=== PATIENT | female | born 1975 | race African-American/Black ===

== ENCOUNTER 2024-04-24 12:40 | Outpatient (CLI) | payer BC, SELFPAY | END 2024-04-24 12:41 | disposition home or self-care (01) | LOC: ANHSURGERY 12:47 | PROVIDERS: PCP Family Medicine; Visit Provider Obstetrics & Gynecology | DX: Z01.818 Encounter for other preprocedural examination (principal); N92.0 Excessive and frequent menstruation with regular cycle | CPT/HCPCS: 36415; 86850; 86900; 86901 ==

== ENCOUNTER 2024-04-29 00:14 | Day surgery (SDC) | payer BC, SELFPAY ==
[2024-04-22 14:45] VITALS: BMI 33.2
--- NOTE | 2024-04-22 14:53 | PC.NURSE ---
Report to the Outpatient Waiting Room, entrance under the green pavilion located off [facility], at time _0600_ on date _[id number]_. Planned Procedure Time: _0730_. Time changes happen often and if your time is changed the preop area will call you the afternoon before. - You and your visitor will be asked to self-screen and do not enter if you have any COVID symptoms. - A mask is optional within the hospital at this time. Patients may have clear liquids (water, carbonated beverages, clear teas, apple juice) until 3 hours prior to surgery with a maximum of 20 ounces. - No food from midnight until time of surgery Take the following medications with a SIP of water the morning of surgery: None DO NOT STOP ANY OF YOUR OTHER PRESCRIPTION MEDICATIONS PRIOR TO SURGERY ?EXCEPT THE FOLLOWING Medications to discontinue per physician None Date to take last dose Please no make-up, nail irish, hairspray, perfume, deodorant, or body powder the day of surgery. No jewelry (including any body piercings) or valuables the day of surgery, leave them at home. Please take a shower or bath the night before, or the morning of, surgery with an antibacterial soap. Wear comfortable, loose fitting clothing. - Jewelry must be removed prior to entering the operating room. Rings and piercings that are not removed may be cut off. - The hospital will not accept responsibility for valuables. - Please leave all valuables, including medications, at home the day of surgery. If you are going home after surgery, a licensed refrigerated company driver must drive you home. - NO public transportation without another adult if you receive anesthesia. - We recommend that an adult stay with you for 24 hours following discharge. - We also recommend that you do not drive, make important decision, drink alcoholic beverages, or take any drugs that were not prescribed by your health care provider for at least 24 hours after your discharge time. Follow any additional instructions given to you from your surgeon. If you or anyone in your household have experienced Covid symptoms in the past week, please notify your surgeon or the nurse liaison at the phone number below for possible testing. Telephone instructions given to __Joan___and asked if any additional questions and then verbalized understanding. Patient advised to call surgeon office or pre surgery nurse liaison [phone] if any additional questions.
[2024-04-29] VITALS (9 sets, daily range): BP systolic 95–137; BP diastolic 54–89; PULSE 65–90; RESP 14–20; TEMP 36.2–36.7; O2SAT 96–100
[2024-04-29] MEDS: LACTATED RINGERS 1,000 ML 30 ML IV CONT ×2 (06:45→10:50)
[2024-04-29] MEDS: KETOROLAC 15 MG/ML VIAL (*BKC) IV PUSH (06:45)
[2024-04-29] MEDS: ACETAMINOPHEN 500 MG TABLET 1000 MG PO (06:45)
--- NOTE | 2024-04-29 06:55 | P.PNAN_ITS ---
Anes - Initial Pre Proc Eval Procedure: Operation Date: 04/29/24 07:30 Proposed Procedures p Robotic Laparoscopic Assisted Total Vaginal Hysterectomy with Bilateral Salpingo-oophorectomy - Louis Tineo MD Date/Time: 04/29/24 06:55 Surgeon: Louis Tineo MD Pre Op Diagnosis: Nat II, Menorrhagia, Fibroid Uterus Patient Data Age: 48 Gender: F Height: 1.8 m Weight: 108 kg Allergies Allergy/AdvReac Type Severity Reaction Status Date / Time No Known Allergies Allergy Verified 04/22/24 14:44 Home Medications Medication Instructions Recorded Confirmed Type phentermine 37.5 mg tablet 37.5 mg PO DAILY 04/22/24 04/22/24 History metronidazole 500 mg tablet 500 mg PO BID 7 days #14 tabs 04/27/24 Rx Patient hx anesthesia problems: none Family hx anesthesia problems: none Results Review: All pre-operative results and documents have been reviewed as part of the pre- operative evaluation. [facility] Past Medical History Medical History LGSIL on Pap smear of cervix No active medical problems Papanicolaou smear of cervix with positive 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 Surgical History Surgical History S/P right oophorectomy S/P splenectomy Family History Family History Other Alcoholism Asthma Diabetes mellitus Heart disease History of cancer Hypertension Social History Social History Smoking status: Never smoker Alcohol intake: current Drinks per week: 5 Substance use: never Substance use type: does not use Do You Feel Safe in your Home?: Yes Lack of Transportation: No Lack of Food: Never True Current Housing: I Have Housing Concerned About Future Housing: No Difficulty Paying Gas/Electric Bills: No Difficulty Paying for Meds: No Currently Unemployed: No Difficulty w/ Childcare or Family Care: No Living arrangements: with family Spiritual care concerns: No Anes - Eval Final PreProcedure Day of Procedure 04/29/24 06:55 Patient weight: obese Heart: regular rate and rhythm Lungs: clear to auscultation Airway: Mallampati scale class II Neurological: alert and oriented Last oral intake: >/= 8 hours ASA classification: II Emergent: no Anesthetic plan: proceed Anesthesia type and monitoring: general ETT and standard monitoring Results Review: All pre-operative results and documents have been reviewed as part of the pre- operative evaluation. Informed Consent: The patient's anesthetic plan and its attendant risks and benefits were discussed with the patient/family/POA. Questions were solicited and answers provided to the satisfaction of the patient/family/POA.
--- NOTE | 2024-04-29 07:11 | WPDHPUPDATE1 ---
History and Physical Update Update Date/Time: 04/29/24 07:11 History and Physical has been reviewed, including an updated exam of the patient. There are NO changes in the patient's condition. Risks, benefits, and alternatives have been discussed and questions answered. Patient agrees to proceed with procedure.
[2024-04-29] MEDS: ceFAZolin 2 GM/D5W 50 ML 2 GM/50 ML BAG IVPB (07:30)
[2024-04-29] MEDS: SCOPOLAMINE 1 MG PATCH 1 PATCH TRANSDERM (07:36)
[2024-04-29] MEDS: BUPivacaine HCL 0.5% 10 ML AMP 20 ML INFILTRATE (08:15)
[2024-04-29 08:23] LABS: BEDSIDEPREGUCG Negative
--- NOTE | 2024-04-29 10:32 | PM.OP ---
Procedure Note - Brief Procedure Note - Brief Date of procedure: 04/29/24 Nat II, Menorrhagia, Fibroid Uterus Post-op diagnosis: Other (1. Menorrhagia 2. CIN2 3. Extensive pelvic adhesions) Procedure performed: 1. Laparoscopic robotic assisted vaginal hysterectomy with bilateral salpingectomy. 2. Extensive lysis of adhesions 3. Cystoscopy Surgeon: Louis Tineo MD Anesthesia: GETA Findings: Uterus enlarged, adhesions of intestines to mid abdomen, absent right ovary, left ovary densely adhesed to uterus and colon, adhesions of left fallopian tube to pelvic side wall. Normal cystoscopy with jetting from both ureteral orifi. Estimated blood loss (mL): 50 IV fluids (mL): 1,000 Urine output (mL): 150 Drains: No Packing: No Pathology: Yes (Uterus with cervix and right and left fallopian tube, remaining right fallopian tube) Complications: No immediate complications Condition: Stable Disposition: PACU
[2024-04-29] MEDS: fentaNYL CITRATE INJ (*CRX) 100 MCG/2 ML VIAL 25 MCG IV PUSH ×4 (11:25→11:48)
[2024-04-29] MEDS: SIMETHICONE 80 MG TAB.CHEW PO ×2 (12:18→16:39)
[2024-04-29] MEDS: DEXTROSE 5%/0.45% SOD CHL 1,000 ML 125 ML IV CONT (12:21)
[2024-04-29] MEDS: IBUPROFEN 600 MG TABLET PO (12:21)
[2024-04-29] MEDS: HYDROcodone/acetaminophen (*CRX) 10-325 MG TABLET 1 TAB PO ×3 (12:21→18:45)
[2024-04-29] MEDS: ONDANSETRON INJ 4 MG/2 ML VIAL IV PUSH (15:24)
[2024-04-29] MEDS: MORPHINE SULFATE (*CRX) 4 MG/ML INJ IV PUSH ×2 (16:39→20:40)
[2024-04-29] MEDS: KETOROLAC 30 MG/ML VIAL (*BKC) IV PUSH (18:45)
--- NOTE | 2024-04-29 23:55 | W.PM.PROC2 ---
Procedure Note - Detailed Date of Procedure 04/30/24 Pre-op Diagnosis Nat II, Menorrhagia, Fibroid Uterus Post-op Diagnosis Other (1. CIN2 2. Menorrhagia 3. Extensive lysis of adhesions) Procedure Performed Robotic assisted laparoscopic hysterectomy with bilateral salpingectomy 2. Extensive lysis of adhesions 3. Cystoscopy Surgeon Louis Tineo MD Lead Rider Laith Alcocer Anesthesia General and Local Indications CIN2 and menorrhagia. Findings Uterus approximately 10 week size, extensive adhesions of uterus to pelvic sidewall and left ovary adhesed to posterior uterus and colon. Adhesions of intestines right of midline in mid abdomen. Normal cystoscopy. Description of Procedure After informed consent was obtained she was taken to the operating room and general endotracheal anesthesia was administered. She was placed in low lithotomy position. An exam under anesthesia was performed. Uterus mildly enlarged no adnexal masses palpated. She was and prepped and draped in sterile fashion. Castro catheter placed in bladder. Attention was turned to the vagina speculum was inserted. Single-tooth tenaculum placed on anterior lip of the cervix the uterus sounded to 9cm. The cervix was dilated to a 8 Issa dilator. A size 8 uterine manipulator was inserted and secured. A size 3.0 colp cup was secured in the vagina. Then attention was turned to the abdomen with new sterile gloves. .5% marcaine injected subcutaneously. An incision was made horizontal 2 cm above the umbilicus. The subcutaneous tissue was dissected with S retractors. Anterior and posterior fascia grasped with Melida clamp and incised. Peritoneum entered. No adhesions palpated. The fascia sutures were secured with 0 vicryl. The robotic hysson port and camera inserted into abdomen and secured to fascial sutures. A Pneumoperitoneum of 15 mm per mercury was obtained. There was adhesions of intestines to right of midline to anterior abdominal wall. A small incision was made approximately 6 cm lateral to the port on the left side of the port. A size 8mm robotic port was inserted under laparoscopic visualization into the abdomen on the left side. Patient was placed in [place] position. The robotic arms were attached to ports. The right round ligament was ligated and the anterior leaf of broad ligament dissected. Adhesions were lysed from right and posterior uterus. The right side of the vesicouterine peritoneum was dissected from the lower uterine segment and upper cervix. The right fallopian tube was ligated. The ascending uterine vessels on the right were ligated. The uterine vessels were ligated. Attention was turned to the left adnexa which adhesions were lysed from the fallopian tube and pelvic sidewall and from pericolic fat. The left ovary was densely adhesed to posterior uterus and colon. The ovary was dissected off of posterior uterus. The right round ligament which was ligated and the anterior leaf of the broad ligament was dissected anteriorly. The rest of the vesicouterine peritoneum was dissected off of the uterus. Once the bladder was dissected below the colp cup then further lysis of adhesions of ovary was performed. Adhesions to distal colon dense and decision was made not to remove ovary. The ascending uterine vessels were ligated. The uterine arteries were ligated. The cardinal ligaments were ligated. This was done on both sides. An incision was made anterior colpotomy incision was made and this was carried around until the cervix was removed from the vagina. The uterus and cervix and right and left fallopian tubes were removed through the vagina. The vaginal cuff was closed in a running fashion with 0 V lock suture x 2. Hemostasis was noted. The pelvis was irrigated. Hemostasis noted. Hemostatic agent was applied in the pelvis. The patient was taken out of Trendelenburg position. The pneumoperitoneum was released and the ports were removed. The fascial sutures at the supraumbili
[2024-04-30] MEDS: HYDROcodone/acetaminophen (*CRX) 10-325 MG TABLET 1 TAB PO ×3 (01:50→14:34)
[2024-04-30 04:22] VITALS: BP 98/58; PULSE 71; RESP 18; TEMP 37.2; O2SAT 100
[2024-04-30] MEDS: MORPHINE SULFATE (*CRX) 4 MG/ML INJ IV PUSH (04:40)
[2024-04-30 08:45] VITALS: BP 105/73; PULSE 80; RESP 18; TEMP 36.9; O2SAT 98
[2024-04-30] MEDS: IBUPROFEN 600 MG TABLET PO ×2 (09:50→14:34)
--- NOTE | 2024-04-30 12:23 | PM.GYNPNOP ---
GROUP TESTER - A/P Assessment and plan (1) H/O: hysterectomy: Code(s): Z90.710 - Acquired absence of both cervix and uterus Status: Acute Assessment and Plan: POD1. Discussed her surgery findings. She is doing well. Encourage ambulation. Will discharge after regular diet. Discharge precautions discussed. Postoperative Procedures: Procedures Operation Date: 04/29/24 07:30 Actual Procedure Side Surgeon p Robotic Laparoscopic Assisted Total Vaginal Hysterectomy with Bilateral Salpingectomy, Cystoscopy Bilateral Louis Tineo MD Time Spent With Patient Time: Total time spent is greater than 50% in coordination of care (as documented) at patient's floor/unit and/or counseling patient: Time with patient: 15 - 25 minutes GROUP TESTER- PN:Subj Post-Op Subjective Date/time seen: 04/30/24829 Interval history: She has walked in room to restroom without problems. No nausea. Pain controlled. No leg pain. She has not had regular diet yet. She has tolerated liquids. Subjective: patient reports feeling better Exam Const: General: comfortable Resp: Effort & Inspection: normal respiratory effort GI: Other: incisions intact, nondistended, nontender Extrem: General: normal to inspection and no calf tenderness GROUP TESTER - PN: Obj Data Vital Signs Vital Signs: Vital Signs - 24 hr 04/29/24 15:25 04/29/24 19:00 04/30/24 04:22 Temperature 98.0 F 98.0 F 98.9 F Pulse Rate 90 65 71 Respiratory Rate 16 18 18 Blood Pressure 108/72 115/72 98/58 L Pulse Oximetry 99 100 04/30/24 08:45 Temperature 98.5 F Pulse Rate 80 Respiratory Rate 18 Blood Pressure 105/73 Pulse Oximetry 98 Intake/Output Intake/Output: Intake & Output 04/27/24 04/28/24 04/29/24 04/30/24 23:59 23:59 23:59 23:59 Intake Total 1792 1000 Output Total 350 200 Balance 1442 800 Meds/Results Medications: Active Medications Generic Name Dose Route Start Last Admin Trade Name Freq PRN Reason Stop Dose Admin Hydrocodone Bitart/Acetaminophen 1 tab 04/29/24 10:37 Hydrocodone/Acetaminophen (*Crx) 5-325 Mg Tablet PO Q3H PRN Pain Rated 5 or Less Hydrocodone Bitart/Acetaminophen 1 tab 04/29/24 10:37 04/30/24 09:50 Hydrocodone/Acetaminophen (*Crx) 10-325 Mg Tablet PO 1 tab Q3H PRN Administration Pain Rated 6 or Greater Ibuprofen 600 mg 04/29/24 10:37 04/30/24 09:50 Ibuprofen 600 Mg Tablet PO 600 mg Q6H PRN Administration Cramping Ketorolac Tromethamine 30 mg 04/29/24 10:37 04/29/24 18:45 Ketorolac 30 Mg/Ml Vial (*Bkc) IV PUSH 05/04/24 10:36 30 mg Q6H PRN Administration Pain Rated 4-6 Morphine Sulfate 4 mg 04/29/24 16:30 04/30/24 04:40 Morphine Sulfate (*Crx) 4 Mg/Ml Inj IV PUSH 4 mg Q4H PRN Administration Pain Rated 7-10 Naloxone HCl 0.1 mg 04/29/24 10:37 Naloxone Hcl 0.4 Mg/Ml Vial IV PUSH Q2M PRN Respiratory rate less than 10 Ondansetron HCl 4 mg 04/29/24 10:37 04/29/24 15:24 Ondansetron Inj 4 Mg/2 Ml Vial IV PUSH 4 mg Q6H PRN Administration Nausea And Vomiting Simethicone 80 mg 04/29/24 12:00 04/29/24 16:39 Simethicone 80 Mg Tab.Chew PO 80 mg TIDWM CHERRI Administration
--- NOTE | 2024-04-30 12:27 | PM.DS ---
DS: Admitting Diagnosis Discharge Date 04/30/2024 Admitting Diagnosis 1. LYDIA 2 2. Menorrhagia DS: Discharge Diagnosis Discharge Diagnosis (1) Menorrhagia: Code(s): N92.0 - Excessive and frequent menstruation with regular cycle Status: Acute (2) LYDIA II (cervical intraepithelial neoplasia II): Code(s): N87.1 - Moderate cervical dysplasia Status: Acute (3) Pelvic adhesive disease: Code(s): N73.6 - Female pelvic peritoneal adhesions (postinfective) Status: Acute DS: Summary Hospital Course Reason for hospitalization: Planned hysterectomy Hospital Course: she was admitted on 04/29/2024 for planned robotic hysterectomy. She had an uncomplicated hysterectomy. Now on post op day 1 she had adequate pain control with oral pain medicines she tolerated regular diet and was ambulating in room without any problems and was discharged to home. Time Spent with Patient Time attestation: Total time spent providing and/or coordinating discharge services: Exam Const: General: cooperative Orientation/consciousness: oriented to person, oriented to place and oriented to time HENMT: Face/Nose/Sinus: Normal external nose present Resp: Effort & Inspection: normal respiratory effort GI: Inspection: normal to inspection Skin: General skin exam: normal color Neuro: General: oriented to person, oriented to place and oriented to time Extrem: General: normal to inspection and no calf tenderness Psych: Appearance: grossly normal DS: Data Data Completed and Pending Completed studies during hospitalization: Pending at discharge 04/29/24 09:52 Surgical [PTH] Routine Discharge Plan Discharge Patient Disposition: Home, Self-Care Stand Alone Forms: General Discharge Instructions Follow-up/Referrals: Louis Tineo MD [Physician] - Discharge Medications: New hydrocodone-acetaminophen 5-325 mg Tablet 1 tablet PO Q3H PRN (Reason: Pain Rated 5 Or Less) Qty: 20 0RF Continued metronidazole 500 mg tablet 500 mg PO BID 7 Days Qty: 20 0RF No Action phentermine 37.5 mg tablet 37.5 mg PO DAILY
--- NOTE | 2024-04-30 12:56 | WPDANESPN ---
Anes - Prog Note Post-Op Date/Time: 04/30/24 12:56 Vital Signs: Last Vital Signs Temp 36.9 C 04/30/24 08:45 Pulse 80 04/30/24 08:45 Resp 18 04/30/24 08:45 BP 105/73 04/30/24 08:45 Pulse Ox 98 04/30/24 08:45 O2 Del Method Room Air 04/29/24 11:50 O2 Flow Rate 6 04/29/24 10:50 Pain Score (VAS): 2 I/O: Intake & Output 04/29/24 04/30/24 04/30/24 23:59 07:59 15:59 Intake Total 1042 1000 Output Total 200 200 Balance 842 800 Patient Feedback: Patient satisfied with anesthetic care.
== END 2024-04-30 14:02 | disposition home or self-care (01) ==
LOC: ANHSURGERY 06:07 → ANHOB2 11:39
PROVIDERS: PCP Family Medicine; Visit Provider Obstetrics & Gynecology
PROC: (CPT 58571; principal; 2024-04-29 07:30)
DX: N88.8 Other specified noninflammatory disorders of cervix uteri (principal); N87.1 Moderate cervical dysplasia; N73.6 Female pelvic peritoneal adhesions (postinfective); N72 Inflammatory disease of cervix uteri; D25.1 Intramural leiomyoma of uterus; N83.8 Other noninflammatory disorders of ovary, fallopian tube and broad ligament; E66.9 Obesity, unspecified; Z68.32 Body mass index [BMI] 32.0-32.9, adult; G89.18 Other acute postprocedural pain; Z98.890 Other specified postprocedural states; Z80.9 Family history of malignant neoplasm, unspecified; Z82.49 Family history of ischemic heart disease and other diseases of the circulatory system
CPT/HCPCS: 58571; S2900; 36415; 86850; 86900; 86901; 88307; 99199; A9270; J0690; J1100; J1170; J1885; J2250; J2270; J2371; J2405; J2704; J3010; J7030; J7120

== ENCOUNTER 2024-05-04 15:31 | Inpatient (IN) | payer BC, SELFPAY ==
--- NOTE | ~2024-05-04 | CT_ITS ---
EXAMINATION: CT abdomen pelvis wo con DATE: 05/08/2024 10:26 INDICATION: Abdominal abscess. TECHNIQUE: Computed tomography (CT) of the abdomen and pelvis was performed without intravenous contr ast. Automated exposure control and iterative reconstruction technique were employed. The dose-length product was 1167.39 mGy-cm. COMPARISON: CT abdomen and pelvis 05/04/2024 FINDINGS: The visualized portions of the lung bases demonstrate mild atelectasis and small pleural ef fusions. The heart size is normal. No pericardial effusion. The liver, and pancreas are normal. There is a gallstone in the gallbladder, which is normal in size. The spleen is absent. The adrenal glands and kidneys are normal. There are no dilated loops of bowel. The appendix is normal. There is a perc utaneous drain in right paracolic gutter without significant fluid around the tube. There is fluid an d gas in the hysterectomy bed measuring 4.5 x 5.7 x 0.8 cm with percutaneous drain in expected positi on. There is mild pelvic and retroperitoneal lymphadenopathy, likely reactive. Body wall edema is not ed. There is trace ascites. There is mild thoracic spondylosis. IMPRESSION: 1. Small pleural effusions. 2. Percutaneous drain in right paracolic gutter without significant fluid around the tube. 3. Fluid and gas in the hysterectomy bed measuring 4.5 x 5.7 x 0.8 cm with interval improvement with percutaneous drain in expected position. 4. Mild pelvic and retroperitoneal lymphadenopathy, likely reactive. Reviewed, dictated and finalized at location A. IMPRESSION: 1. Small pleural effusions. 2. Percutaneous drain in right paracolic gutter without significant fluid aroun d the tube. 3. Fluid and gas in the hysterectomy bed measuring 4.5 x 5.7 x 0.8 cm with inte rval improvement with percutaneous drain in expected position. 4. Mild pelvic and retroperitoneal lymphadenopathy, likely reactive.
--- NOTE | ~2024-05-04 | CT_ITS ---
EXAMINATION: 1. CT guide absc cath placement 2. CT guide absc cath placement DATE: 05/05/2024 14:28 INDICATION: Intra-abdominal abscesses. TECHNIQUE: The procedure including the risks, benefits, and alternatives was discussed with the patie nt. Risks discussed included bleeding and infection. The patient understood the risks and benefits an d agreed to proceed. The skin overlying the abdomen was prepped and draped in usual sterile fashion. Anesthetic was administered with 1% lidocaine subcutaneously. An 18 gauge trochar needle was insert ed into the right abdominal abscess with CT guidance. The needle was exchanged over a wire for 5 Fren ch, 7 Barbadian, and 9 Barbadian dilators and then for an 8.5 Barbadian pigtail catheter. The catheter was sti tched to the skin. An 18-gauge trochar needle was inserted into the lower abdominal abscess with CT guidance. The needle was exchanged over a wire for 5 Barbadian, 7 Barbadian, and 9 Barbadian dilators and then for an 8.5 Barbadian p igtail catheter. The catheter was stitched to the skin. The dose-length product was 283.13 mGy-cm. Th ere were no immediate complications. FINDINGS: CT images demonstrate the catheter within the right abdominal abscess. CT images demonstrat e the catheter within the lower abdominal abscess. 8 mL fluid was aspirated from the lower abscess fo r testing. IMPRESSION: 1. Successful CT-guided right abscess drainage. 2. Successful CT-guided lower abdominal abscess drainage. 3. 8 mL serosanguineous fluid was sent for aerobic and anaerobic cultures. Reviewed, dictated and finalized at location A. IMPRESSION: 1. Successful CT-guided right abscess drainage. 2. Successful CT-guided lower abdominal abscess drainage. 3. 8 mL serosanguineous fluid was sent for aerobic and anaerobic cultures.
--- NOTE | ~2024-05-04 | CT_ITS ---
EXAMINATION: CT abdomen pelvis w con DATE: 05/04/2024 18:31 INDICATION: lower abd pain, recent hysterectomy TECHNIQUE: Computed tomography (CT) of the abdomen and pelvis was performed with 100 mL Omnipaque-350 intravenous contrast. Automated exposure control and iterative reconstruction technique were employe d. The dose-length product was 1232.97 mGy-cm. COMPARISON: None. FINDINGS: Lower thorax: Bibasilar scar/atelectasis Liver: Irregular hypodensity in the right lobe, likely cyst or hemangioma. Biliary/Gallbladder: Cholelithiasis. No inflammatory change. Prominent intra and extra hepatic bile d ucts, likely secondary to cholecystectomy Pancreas: No mass or duct dilation. Spleen: Normal. Adrenals:No mass. Kidneys: No suspicious mass, obstructing stone, or hydronephrosis. GI tract: No small or large bowel dilation. Normal appendix. Mesentery/Peritoneum: 5.0 x 4.0 cm rim enhancing fluid collection in the inferior right paracolic gut ter. Enlarged inferior mesenteric lymph nodes. Retroperitoneum: No mass. Pelvis: Absent uterus. 9.3 x 10.8 x 11.8 cm, irregular, rim-enhancing fluid and gas collection in the pelvis with dependent hyperdense material. This collection is intimately associated with the anterio r wall of the traversing sigmoid colon. Bladder wall edema and inflammation. Bilateral pelvic lymphad enopathy. Soft Tissues: Bilateral inguinal lymphadenopathy. Bones: No acute osseous finding. IMPRESSION: 11.8 cm fluid and gas collection with rim enhancement in the pelvis concerning for abscess. Sigmoid p erforation with subsequent bile leak should be considered in the differential given the close associa tion of the collection with the traversing sigmoid colon. Hyperdense material in the pelvic collection may represent proteinaceous debris, blood, or bowel cont ent. No large volume active extravasation detected. 5.0 cm rim enhancing fluid collection in the distal right paracolic gutter concerning for abscess whi ch may or may not be in communication with the pelvic collection. Inferior mesenteric, pelvic, and bilateral inguinal lymphadenopathy. Cystitis, possibly reactive. Correlate with urinalysis Reviewed, dictated and finalized at location K. IMPRESSION: 11.8 cm fluid and gas collection with rim enhancement in the pelvis concerning for abscess. Sigmoid perforation with subsequent bile leak should be considered in the differential given the close association of the collection with the tra versing sigmoid colon. Hyperdense material in the pelvic collection may represent proteinaceous debris , blood, or bowel content. No large volume active extravasation detected. 5.0 cm rim enhancing fluid collection in the distal right paracolic gutter conc erning for abscess which may or may not be in communication with the pelvic col lection. Inferior mesenteric, pelvic, and bilateral inguinal lymphadenopathy. Cystitis, possibly reactive. Correlate with urinalysis
[2024-05-04 15:35] VITALS: BP 108/60; PULSE 96; RESP 20; TEMP 37; O2SAT 98
--- NOTE | 2024-05-04 15:45 | ED.GENADULT ---
HPI - General Adult General Chief complaint: Wound/Laceration <DELL Wise Last Filed: 05/04/24 15:53> Stated complaint: post surgical <DELL Wise Last Filed: 05/04/24 15:53> Time Seen by Provider: 05/04/24 15:45 <DELL Wise Last Filed: 05/04/24 15:53> Focused HPI: Patient is a 48 y/o female who presents to the ED with c/o post-operative fever. Patient had a laparoscopic hysterectomy on 04/[address] Tineo. She reports she has been gushing light pink fluid from her vagina since yesterday. She was scheduled to follow up in the office tomorrow for this, but developed a fever up to 101.4 F this morning. She was then advised to come to the ED for further evaluation. Patient states she has been soaking through pads. Reports nausea, lower abd pain - worse with movement, denies vomiting. Denies dysuria, hematuria. GENERAL: Well-appearing, well-nourished, and in no acute distress. HEAD: Normocephalic, atraumatic. CHEST: Clear to auscultation. ?No respiratory distress. HEART: Regular rate and rhythm.? ABD: Diffuse tenderness throughout lower abdomen, incisions are clean dry and intact. NEURO: ?Alert and oriented x3. Patient screened in triage and initial orders placed.? ?Additional care and disposition to be based upon?diagnostic testing and treatment. <DELL Wise Last Filed: 05/04/24 15:53> Source: patient <DELL Wise Last Filed: 05/04/24 15:53> Mode of arrival: ambulatory <DELL Wise Last Filed: 05/04/24 15:53> Limitations: no limitations <DELL Wise Last Filed: 05/04/24 15:53> Related Data Home medications: Home Medications Medication Instructions Recorded Confirmed metronidazole 500 mg tablet 500 mg PO BID 05/04/24 05/04/24 <DELL Wise Last Filed: 05/04/24 15:53> Allergies/adverse reactions: Allergies Allergy/AdvReac Type Severity Reaction Status Date / Time No Known Allergies Allergy Verified 05/04/24 15:32 <Bernadine Conte PA-C - Last Filed: 05/04/24 15:53> Review of Systems Review of Systems: All systems as dictated in HPI <Mohit Krause PA-C - Last Filed: 05/05/24 03:00> PMFSH Past Medical History Medical History: Medical History LGSIL on Pap smear of cervix No active medical problems Papanicolaou smear of cervix with positive 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 <Bernadine Conte PA-C - Last Filed: 05/04/24 15:53> Surgical History Surgical History: Surgical History S/P right oophorectomy S/P splenectomy <DELL Wise Last Filed: 05/04/24 15:53> Family History Family History: Family History Other Alcoholism Asthma Diabetes mellitus Heart disease History of cancer Hypertension <DELL Wise Last Filed: 05/04/24 15:53> Social History Social History: Social History Smoking status: Never smoker Alcohol intake: current Drinks per week: 1 Substance use: never Substance use type: does not use Do You Feel Safe in your Home?: Yes Lack of Transportation: No Lack of Food: Never True Current Housing: I Have Housing Concerned About Future Housing: No Difficulty Paying Gas/Electric Bills: No Difficulty Paying for Meds: No Currently Unemployed: No Education: Master's Degree or Higher Difficulty w/ Childcare or Family Care: No Living arrangements: with family Spiritual care concerns: No <DELL Wise Last Filed: 05/04/24 15:53> Exam Narrative: GENERAL: Well-appearing, well-nourished, and in no acute distress. HEAD: Normocephalic, atraumatic. EYES: PERRLA and
[2024-05-04 17:50] LABS: Basophils Absolute Auto 0.1 K/mm3 (0.0-0.1); Basophils Percent Auto 0.4 % (0.2-1.2); Eosinophils Absolute Auto 0.1 K/mm3 (0-0.3); Eosinophils Percent Auto 0.4 % (0-4.4); Hematocrit 28.6 % (37.0-47.0); Hemoglobin 9.1 g/dL (12.0-15.0); Immature Granulocyte Absolute 0.07 K/mm3 (0.00-0.031); Immature Granulocyte Percent A 0.5 % (0-0.5); Lymphocytes Absolute Auto 2.57 K/mm3 (0.9-3.2); Lymphocytes Percent Auto 18.4 % (18.3-44.2); Mean Corpuscular HGB Conc 31.8 g/dl (32-36); Mean Corpuscular Hemoglobin 22.7 pg (26-34); Mean Corpuscular Volume 71.3 fl (80-100); Monocytes Absolute Auto 1.5 K/mm3 (0.1-0.6); Monocytes Percent Auto 10.9 % (2.6-8.5); Neutrophils Absolute Auto 9.7 K/mm3 (1.3-6.7); Neutrophils Percent Auto 69.4 % (45.5-73.1); Nucleated Red Blood Cells Perc 0.2 % (0.0-0.2); Platelet Count Result 456 k/mm3 (150-375); Red Blood Count 4.01 M/mm3 (4.2-5.4); Red Cell Distribution Width 19.2 % (11.5-14.5)
[2024-05-04 18:20] LABS: Add Urine Microscopic? YES; Appearance Urine Cloudy (Clear); Bacteria Urine 1+ /hpf; Bilirubin Urine 2+ (Negative); Blood Urine 3+ (Negative); Color Urine Dark Yellow (Yellow); Glucose Urine UA Negative (Negative); Ketones Urine 2+ mg/dL (Negative); Leukocyte Esterase Ur 2+ LEU/UL (Negative); Need Manual Microscopic Reviewed; Nitrate Urine Negative (Negative); Non Pathogenic Casts >20; Protein Urine 2+ mg/dL (Negative); RBC Urine 21-50 /hpf (0-2); Specific Grav Ur 1.033 (1.001-1.035); Squamous Epithelial Cell Urine Few /hpf (Few); WBC Urine 51-100 /hpf (0-3)
[2024-05-04 18:25] LABS: Estimated CRCL calculation 125 ml/min; Estimated Glomerular Filt Rate > 60
[2024-05-04] MEDS: ONDANSETRON INJ 4 MG/2 ML VIAL IV PUSH (18:33)
[2024-05-04] MEDS: MORPHINE SULFATE (*CRX) 4 MG/ML INJ IV PUSH (18:34)
[2024-05-04 18:35] VITALS: BP 129/75; PULSE 94; RESP 14; O2SAT 98
[2024-05-04 18:47] LABS: Platelet Estimate Increased (Adequate)
[2024-05-04 18:48] LABS: Schistocytes Rare
[2024-05-04 18:49] LABS: Hypochromasia 1+; Microcytosis 1+ (NORMAL)
[2024-05-04 18:50] LABS: Anisocytosis 3+
[2024-05-04] MEDS: SODIUM CHLORIDE 0.9% IV 1,000 ML 999 ML IV CONT (19:01)
[2024-05-04 19:02] LABS: Alanine Aminotransferase 13 U/L (6-35); Albumin Level 3.2 g/dL (3.5-5.1); Alkaline Phosphatase 73 U/L (38-126); Anion Gap 9 mmol/L (4-12); Aspartate Amino Transferase 28 U/L (14-36); Bilirubin,Total 0.8 mg/dL (0.2-1.3); Blood Urea Nitrogen 8 mg/dL (7-17); Calcium 9.2 mg/dL (8.4-10.2); Carbon Dioxide 25 mmol/L (22-30); Chloride 96 mmol/L (98-107); Estimated CRCL calculation 143 ml/min; Estimated Glomerular Filt Rate > 60; Glucose 95 mg/dL (65-110); Potassium 3.3 mmol/L (3.4-5.0); Sodium 130 mmol/L (137-145)
[2024-05-04 20:00] VITALS: BP 125/75; PULSE 91; RESP 16; TEMP 37.2; O2SAT 99
[2024-05-04] MEDS: PIPERACILLN/TAZ 3.375GM/NS50ML 3.375 GM/50 ML BAG IVPB (20:00)
--- NOTE | 2024-05-04 20:13 | ADMGEN ---
This patient, Joan Sargent, was admitted to Medical Room 345-. Patient/family oriented to hospital policies and general routines including ID bracelet, bed and alarms, visiting hours, pain management, procedures, bathroom and other care routines, personal items, smoking policy, room service/diet, and visiting hours. Information on how to activate the Rapid Response Team has been discussed. Patient/Family are encouraged to report perceived risks to care and to ask questions if they do not understand what they are told or what they should do.
[2024-05-04 20:20] VITALS: BP 114/66; PULSE 90; RESP 18; TEMP 36.6; O2SAT 96
[2024-05-04 20:22] VITALS: BMI 33.6
[2024-05-04] MEDS: HYDROmorphone HCL INJ (*CRX) 1 MG/ML SYR 0.5 MG IV PUSH (20:23)
[2024-05-04] MEDS: LACTATED RINGERS 1,000 ML 125 ML IV CONT (21:16)
[2024-05-04] MEDS: HYDROcodone/acetaminophen (*CRX) 5-325 MG TABLET 2 TAB PO (21:43)
--- NOTE | 2024-05-05 | ECHO_ITS ---
Patient Info Name: Joan Sargent Age: 48 years : 1975 Gender: Female Ht: 71 in Wt: 239 lbs BSA: 2.36 m2 HR: 95 bpm BP: 100 / 48 mmHg Heart Rhythm: Sinus Rhythm Technical Quality: Good Exam Date: 05/05/2024 11:22 AM Exam Location: Echo Lab Patient Status: Inpatient Admit Date: 05/04/2024 Staff Ordering Physician: Jada Wiseman Supervisor Body Assembly: Roiso James RDCS Attending Provider: Louis Tineo MD Referring Physician: Ivone GRECO; Exam Type: CA echo doppler color flow Study Info Indications - CHEST PAIN Complete two-dimensional, color flow and Doppler transthoracic echocardiogram is performed. Summary 1. Left ventricular chamber dimension is normal. 2. Left ventricular systolic function is normal, estimated at 65-70%. 3. Right ventricular systolic function is normal. 4. There is mild tricuspid valve regurgitation. Left Ventricle Left ventricular chamber dimension is normal. Left ventricular systolic function is normal, estimated at 65-70%. There is no increased left ventricular wall thickness. Right Ventricle Right ventricular chamber dimension is normal. Right ventricular systolic function is normal. Left Atria Left atrial chamber dimension is normal. Right Atria Right atrial chamber dimension is normal. Atrial Septum Intact interatrial septum visualized by color flow imaging. Aortic Valve There is no aortic valve stenosis. There is no aortic valve regurgitation. Pulmonic Valve The pulmonic valve is not well visualized. There is no pulmonic regurgitation. Mitral Valve There is trace mitral valve regurgitation. Tricuspid Valve There is mild tricuspid valve regurgitation. Pericardium/Pleural There is no pericardial effusion. Inferior Vena Cava Normal inferior vena cava with >50% collapse upon inspiration consistent with normal right atrial pressure, 3 mmHg. Aorta The aortic root size at the sinus of Valsalva is normal. Left Ventricular Outflow Tract Name Value Normal LVOT 2D LVOT Diameter 2.1 cm LVOT Doppler LVOT Peak Gradient 9 mmHg LVOT Mean Gradient 6 mmHg LVOT VTI 31 cm LVOT VTI/AV VTI Ratio 1.3 LVOT Stroke Volume 104 ml LVOT CO 9.6 l/min LVOT CI 4.1 l/min/m2 Pulmonic Valve Name Value Normal PV Doppler PV Peak Gradient 3 mmHg Mitral Valve Name Value Normal MV Doppler MV Decel Hernando 310 cm/s2 MV PHT 66 ms MV Area (PHT) 3.3
[2024-05-05] MEDS: PIPERACILLN/TAZ 3.375GM/NS50ML 3.375 GM/50 ML BAG IVPB ×5 (00:13→23:54)
[2024-05-05 06:00] VITALS: BP 98/46; PULSE 95; RESP 16; TEMP 37; O2SAT 100
[2024-05-05 06:34] VITALS: BP 100/48
--- NOTE | 2024-05-05 06:36 | ECG_ITS ---
Test Date: 2024-05-05 06:45:51 Measurements Intervals [place] Rate: 105 P: 32 TN: 136 QRS: -15 QRSD: 99 T: 29 QT: 330 QTc: 436 Interpretive Statements SINUS TACHYCARDIA LOW QRS VOLTAGE IN PRECORDIAL LEADS [QRS DEFLECTION < 1.0 mV IN CHEST LEADS] NONSPECIFIC T-WAVE ABNORMALITY No previous ECG available for comparison Electronically Signed On 05-05-2024 14:47:41 CDT by Eitan Cardenas M.D.
[2024-05-05] MEDS: LACTATED RINGERS 1,000 ML 125 ML IV CONT (06:43)
[2024-05-05 07:05] LABS: Basophils Absolute Auto 0.1 K/mm3 (0.0-0.1); Basophils Percent Auto 0.6 % (0.2-1.2); Eosinophils Absolute Auto 0.1 K/mm3 (0-0.3); Eosinophils Percent Auto 0.6 % (0-4.4); Hematocrit 27.8 % (37.0-47.0); Hemoglobin 8.5 g/dL (12.0-15.0); Immature Granulocyte Absolute 0.11 K/mm3 (0.00-0.031); Immature Granulocyte Percent A 0.9 % (0-0.5); Lymphocytes Absolute Auto 2.53 K/mm3 (0.9-3.2); Lymphocytes Percent Auto 20.7 % (18.3-44.2); Mean Corpuscular HGB Conc 30.6 g/dl (32-36); Mean Corpuscular Hemoglobin 22.3 pg (26-34); Mean Corpuscular Volume 72.8 fl (80-100); Mean Platelet Volume 9.4 fl (7.4-10.4); Monocytes Absolute Auto 1.1 K/mm3 (0.1-0.6); Monocytes Percent Auto 9.3 % (2.6-8.5); Neutrophils Absolute Auto 8.3 K/mm3 (1.3-6.7); Neutrophils Percent Auto 67.9 % (45.5-73.1); Nucleated Red Blood Cells Perc 0.3 % (0.0-0.2); Platelet Count Result 368 k/mm3 (150-375); Red Blood Count 3.82 M/mm3 (4.2-5.4); Red Cell Distribution Width 19.3 % (11.5-14.5); White Blood Count 12.3 K/mm3 (4.5-10.0)
[2024-05-05 07:17] LABS: Platelet Estimate Adequate (Adequate)
[2024-05-05 07:21] LABS: Anisocytosis 2+; Hypochromasia 2+; Microcytosis 1+ (NORMAL); Ovalocytes 2+; Poikilocytosis 2+; Target Cells 3+
[2024-05-05 07:22] LABS: Acanthocytes 2+; Schistocytes 1+
[2024-05-05 07:56] LABS: Alanine Aminotransferase 26 U/L (6-35); Albumin Level 3.1 g/dL (3.5-5.1); Alkaline Phosphatase 81 U/L (38-126); Anion Gap 6 mmol/L (4-12); Aspartate Amino Transferase 73 U/L (14-36); Bilirubin,Total 0.7 mg/dL (0.2-1.3); Blood Urea Nitrogen 7 mg/dL (7-17); Calcium 9.4 mg/dL (8.4-10.2); Carbon Dioxide 26 mmol/L (22-30); Chloride 99 mmol/L (98-107); Estimated CRCL calculation 118 ml/min; Estimated Glomerular Filt Rate > 60; Glucose 125 mg/dL (65-110); Potassium 3.1 mmol/L (3.4-5.0); Sodium 131 mmol/L (137-145)
[2024-05-05 08:13] LABS: Troponin I 0.263 ng/mL (0.000-0.034)
--- NOTE | 2024-05-05 08:22 | PC.NURSE ---
Message left at doctors office for Dr. Tineo regarding critical troponin. Awaiting call back.
--- NOTE | 2024-05-05 09:27 | PM.IMHP ---
H&P: HPI History of Present Illness Date/Time: 05/05/24 09:27 Chief Complaint: Vaginal discharge fever Narrative: patient is a 48-year-old female status post robotic hysterectomy on April 29 due to menorrhagia and LYDIA 2. She presented to the ER yesterday after being informed to go to the ER due to new onset fever of 101.4. She states that she started having a discharge on Saturday which had an odor. And then started having a fever on Saturday. And increasing vaginal discharge that was pinkish. In the ED she had a CT which showed 9.3 x 10.8 x 11.8 cm, irregular, rim-enhancing fluid and gas collection in the pelvis with dependent hyperdense material. She also had leukocytosis. She reports eating a full meal yesterday no emesis. This morning she did have some midsternal chest pressure which an EKG and troponin was ordered. Troponin was elevated. Urine cultures and blood cultures pending. Review of Systems Review of Systems: All systems reviewed & are unremarkable except as noted in HPI and below Cardiovascular: Cardiovascular: Reports no additional cardiovascular complaints and Denies dyspnea Respiratory: Respiratory: Reports no additional respiratory complaints Gastrointestinal: Gastrointestinal: Reports abdominal pain, Denies diarrhea, Denies nausea and Denies vomiting Genitourinary: Genitourinary: Reports pelvic pain and Reports vaginal discharge Integumentary/Breasts: Skin/Breast: Reports system reviewed and no additional complaints, except as docu Neurologic: Reports system reviewed and no additional complaints, except as documented PMFSH Past Medical History Medical History LGSIL on Pap smear of cervix No active medical problems Papanicolaou smear of cervix with positive 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 Surgical History Surgical History S/P right oophorectomy S/P splenectomy Family History Family History Other Alcoholism Asthma Diabetes mellitus Heart disease History of cancer Hypertension Social History Social History Smoking status: Never smoker Alcohol intake: current Drinks per week: 1 Substance use: never Substance use type: does not use Do You Feel Safe in your Home?: Yes Lack of Transportation: No Lack of Food: Never True Current Housing: I Have Housing Concerned About Future Housing: No Difficulty Paying Gas/Electric Bills: No Difficulty Paying for Meds: No Currently Unemployed: No Education: Master's Degree or Higher Difficulty w/ Childcare or Family Care: No Living arrangements: with family Spiritual care concerns: No Meds Home Medications and Allergies Home Medications Medication Instructions Recorded Confirmed Type hydrocodone 5 mg-acetaminophen 325 1 tablet PO Q3H PRN Pain Rated 5 04/30/24 05/04/24 Rx mg tablet Or Less #20 tabs metronidazole 500 mg tablet 500 mg PO BID 05/04/24 05/04/24 History Allergies Allergy/AdvReac Type Severity Reaction Status Date / Time No Known Allergies Allergy Verified 05/04/24 15:32 Vital Signs Vital Signs - 24 hr 05/04/24 15:35 05/04/24 18:35 05/04/24 20:00 Temperature 98.6 F 99.0 F Pulse Rate 96 94 91 Respiratory Rate 20 14 16 Blood Pressure 108/60 129/75 125/75 Pulse Oximetry 98 98 99 Oxygen Delivery 05/04/24 20:20 05/04/24 21:37 05/05/24 06:00 Temperature 98 F 98.6 F Pulse Rate 90 95 Respiratory Rate 18 16 Blood Pressure 114/66 98/46 L Pulse Oximetry 96 100 Oxygen Delivery Room Air 05/05/24 06:34 05/05/24 08:00 Temperature Pulse Rate Respiratory Rate Blood Pressure 100/48 L Pulse Oximetry Oxygen Delivery Room Air Exam Const: General: no acute distress Orientation/consciousness: oriented to person and orie
--- NOTE | 2024-05-05 09:45 | PM.CNCAR ---
Assessment and Plan Assessment and plan (1) Chest pain: Code(s): R07.9 - Chest pain, unspecified Status: Acute Assessment and Plan: Atypical chest pain which prompted troponin to be checked. First troponin mildly elevated at 0.263. A 6 hour troponin has already been ordered. EKG showed sinus tachycardia with no ischemic changes. Mild troponin elevation could be secondary to anemia, infection, hypotension. Cannot rule out underlying coronary artery disease, but given her lack of risk factors I think this is unlikely. Will check an echo and if unremarkable, will sign off. If she does have reduced LVEF or WMA we can discuss ischemic evaluation but for now no plans for ischemia work up. Would recommend replacing her potassium as her K+ is 3.1 and she is complaining of leg cramps. History of Present Illness History of Present Illness Consult date/time: 05/05/24 09:45 Requesting physician: Louis Tineo MD Consult reason: Other (elevated troponin) Reason For Visit: Post Op Infection Narrative: Joan Sargent is a very pleasant 48 year old female who recently underwent laparoscopic hysterectomy on 04/29/24. She presented to the hospital yesterday because of a fever of 101.4 and reports having a significant amount of pink vaginal discharge since Saturday. Last night she developed some midsternal chest pressure while using the bathroom. A troponin level was drawn and was found to be elevated at 0.263. Patient states the chest discomfort has been constant since onset though it has decreased in severity. She notes that the discomfort increases with deep breathing and is sharp. She denies any shortness of breath, palpitations, edema, syncope, pre-syncope. She has no history of chest pain, no cardiac history, but does have a family history of coronary artery disease in her mother. She is resting comfortably in bed at the time of my evaluation and her only complaint is some mild abdominal discomfort. 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 Surgical History Surgical History S/P right oophorectomy S/P splenectomy Family History Family History Other Alcoholism Asthma Diabetes mellitus Heart disease History of cancer Hypertension Social History Social History Smoking status: Never smoker Alcohol intake: current Drinks per week: 1 Substance use: never Substance use type: does not use Do You Feel Safe in your Home?: Yes Lack of Transportation: No Lack of Food: Never True Current Housing: I Have Housing Concerned About Future Housing: No Difficulty Paying Gas/Electric Bills: No Difficulty Paying for Meds: No Currently Unemployed: No Education: Master's Degree or Higher Difficulty w/ Childcare or Family Care: No Living arrangements: with family Spiritual care concerns: No Meds Home Medications and Allergies Home Medications Medication Instructions Recorded Confirmed Type hydrocodone 5 mg-acetaminophen 325 1 tablet PO Q3H PRN Pain Rated 5 04/30/24 05/04/24 Rx mg tablet Or Less #20 tabs metronidazole 500 mg tablet 500 mg PO BID 05/04/24 05/04/24 History Allergies Allergy/AdvReac Type Severity Reaction Status Date / Time No Known Allergies Allergy Verified 05/04/24 15:32 Vital Signs Vital Signs - 24 hr 05/04/24 15:35 05/04/24 18:35 05/04/24 20:00 Temperature 37.0 C 37.2 C Pulse Rate 96 94 91 Respiratory Rate 20 14 16 Blood Pressure 108/60 129/75 125/75 Pulse Oximetr
[2024-05-05] MEDS: HYDROcodone/acetaminophen (*CRX) 5-325 MG TABLET 2 TAB PO ×4 (10:33→22:34)
[2024-05-05 10:35] LABS: Basophils Absolute Auto 0.1 K/mm3 (0.0-0.1); Basophils Percent Auto 0.4 % (0.2-1.2); Eosinophils Absolute Auto 0.1 K/mm3 (0-0.3); Eosinophils Percent Auto 0.4 % (0-4.4); Hematocrit 27.3 % (37.0-47.0); Hemoglobin 8.3 g/dL (12.0-15.0); Immature Granulocyte Absolute 0.06 K/mm3 (0.00-0.031); Immature Granulocyte Percent A 0.5 % (0-0.5); Lymphocytes Absolute Auto 2.54 K/mm3 (0.9-3.2); Lymphocytes Percent Auto 20.9 % (18.3-44.2); Mean Corpuscular HGB Conc 30.4 g/dl (32-36); Mean Corpuscular Hemoglobin 21.5 pg (26-34); Mean Corpuscular Volume 70.7 fl (80-100); Mean Platelet Volume 9.2 fl (7.4-10.4); Monocytes Absolute Auto 1.2 K/mm3 (0.1-0.6); Monocytes Percent Auto 9.6 % (2.6-8.5); Neutrophils Absolute Auto 8.3 K/mm3 (1.3-6.7); Neutrophils Percent Auto 68.2 % (45.5-73.1); Nucleated Red Blood Cells Perc 0.3 % (0.0-0.2); Platelet Count Result 397 k/mm3 (150-375); Red Blood Count 3.86 M/mm3 (4.2-5.4); Red Cell Distribution Width 18.8 % (11.5-14.5); White Blood Count 12.1 K/mm3 (4.5-10.0)
[2024-05-05 10:55] LABS: Anisocytosis 2+; Hypochromasia 2+; Platelet Estimate Adequate (Adequate); Poikilocytosis 2+; Target Cells 2+
--- NOTE | 2024-05-05 10:55 | PM.CNGS ---
Assessment and Plan Assessment and plan (1) Pelvic abscess: Status: Acute Assessment and Plan: CT scan reviewed with the radiologist and shows 2 fluid collections, with the larger one is in the pelvis measuring up to almost 12 cm with fluid and gas, and a smaller 5.0 cm fluid collection in the right pericolic gutter. There is no evidence of any abnormalities of the sigmoid colon or findings to suggest diverticulitis or other reasons for a perforation. No large volume of free intraperitoneal air. It would be surprising for the patient to present with an iatrogenic bowel perforation from surgery a week postop. This is more likely a postoperative infection with development of an abscess. No diffuse peritoneal signs or exam findings to suggest an acute surgical abdomen. Gynecology has ordered percutaneous drainage the intra-abdominal abscesses in Radiology. Agree with proceeding with the procedure today. Continue broad-spectrum IV antibiotics. Okay to start advancing her diet after the percutaneous drainage procedure if she is doing well. (2) H/O: hysterectomy: Code(s): Z90.710 - Acquired absence of both cervix and uterus Status: Acute Assessment and Plan: One week postop. OBGYN following. (3) Chest pain: Code(s): R07.9 - Chest pain, unspecified Status: Acute Assessment and Plan: Cardiology consulted. Trending troponins and echo ordered. (4) Anemia: Code(s): D64.9 - Anemia, unspecified Status: Acute Plan I have discussed the patient's case and plan of care with Dr. Figueredo. Thank you for allowing us to see the patient in consultation and we will continue to follow along with you. History of Present Illness Consult details Consult date: 05/05/24 Reason for consult: other (Bowel perforation) Requesting physician: Italo Marroquin MD Narrative: This is a 48-year-old female who underwent robotic assisted laparoscopic hysterectomy with bilateral salpingectomy, extensive lysis of adhesions, cystoscopy on 04/29/2024. She reportedly discharged postop day 1 and was doing well. She was able to tolerate a diet and felt her pain was controlled. She reports since being home she had been dealing with right lower quadrant cramping abdominal pain. She thought this was related to the surgery, and was taking pain medication for this issue. Postop day 3, she developed vaginal discharge. She reports a clear pink tinged vaginal discharge in copious amounts. She was soaking multiple pads daily. On Saturday, she called the surgeon's office and they scheduled her for a follow-up appointment today. Throughout the day, she had generalized malaise and was feeling unwell. Therefore, she took her temperature and it was 101.4? F. This prompted her to come into the ED for evaluation. [place] [id number], hemoglobin 9.1, hematocrit 28.6, sodium 130, potassium 3.3, lactic acid 1.0. CT scan of the abdomen and pelvis showed an 11.8 cm fluid and gas collection with rim enhancement in the pelvis concerning for abscess, hyperdense material in the pelvic collection may represent proteinaceous debris, blood, or bowel content, inferior mesenteric, pelvic, and bilateral inguinal lymphadenopathy, cystitis, and an other 5.0 cm rim enhancing fluid collection in the distal right pericolic gutter concerning for abscess. Radiologist also mentioned that the larger pelvic abscess is abutting the transversing sigmoid colon and a possible differential would be sigmoid perforation with subsequent bile leak. The patient was admitted and started on IV antibiotics. She also complained of atypical chest pain prompting a troponin, which was elevated. Cardiology consulted. Our service was consulted by gynecology for possible bowel perforation. She is now seen on the medical floor. She denies any recent nausea or vomiting. She has had a poor appetite, but has been able to tolerate oral intake. Sh
[2024-05-05 10:56] LABS: Acanthocytes 2+; Ovalocytes 1+; Schistocytes 1+
[2024-05-05 11:24] LABS: Troponin I 0.233 ng/mL (0.000-0.034)
[2024-05-05 12:25] LABS: INR 1.2; Prothrombin Time 15.6 Seconds (11.1-14.7)
[2024-05-05 12:26] LABS: Partial Thromboplastin Time 36.5 Seconds (22.3-36.8)
[2024-05-05 14:00] VITALS: BP 106/53; PULSE 95; RESP 16; TEMP 36.9; O2SAT 94
[2024-05-05 16:26] LABS: Basophils Absolute Auto 0.1 K/mm3 (0.0-0.1); Basophils Percent Auto 0.5 % (0.2-1.2); Eosinophils Absolute Auto 0.1 K/mm3 (0-0.3); Eosinophils Percent Auto 0.6 % (0-4.4); Hematocrit 24.3 % (37.0-47.0); Hemoglobin 7.7 g/dL (12.0-15.0); Immature Granulocyte Absolute 0.06 K/mm3 (0.00-0.031); Immature Granulocyte Percent A 0.5 % (0-0.5); Lymphocytes Percent Auto 21.5 % (18.3-44.2); Mean Corpuscular HGB Conc 31.7 g/dl (32-36); Mean Corpuscular Hemoglobin 22.5 pg (26-34); Mean Corpuscular Volume 71.1 fl (80-100); Monocytes Absolute Auto 1.3 K/mm3 (0.1-0.6); Monocytes Percent Auto 11.3 % (2.6-8.5); Neutrophils Absolute Auto 7.6 K/mm3 (1.3-6.7); Neutrophils Percent Auto 65.6 % (45.5-73.1); Nucleated Red Blood Cells Perc 0.4 % (0.0-0.2); Platelet Count Result 352 k/mm3 (150-375); Red Blood Count 3.42 M/mm3 (4.2-5.4); Red Cell Distribution Width 18.7 % (11.5-14.5); White Blood Count 11.6 K/mm3 (4.5-10.0)
[2024-05-05 16:37] LABS: Alanine Aminotransferase 27 U/L (6-35); Alkaline Phosphatase 75 U/L (38-126); Anion Gap 7 mmol/L (4-12); Aspartate Amino Transferase 52 U/L (14-36); Bilirubin,Total 0.7 mg/dL (0.2-1.3); Blood Urea Nitrogen 7 mg/dL (7-17); Calcium 9.3 mg/dL (8.4-10.2); Carbon Dioxide 27 mmol/L (22-30); Chloride 99 mmol/L (98-107); Estimated CRCL calculation 135 ml/min; Estimated Glomerular Filt Rate > 60; Glucose 100 mg/dL (65-110); Potassium 3.1 mmol/L (3.4-5.0); Sodium 133 mmol/L (137-145)
[2024-05-05 16:46] LABS: Acanthocytes 2+; Anisocytosis 2+; Hypochromasia 2+; Ovalocytes 2+; Platelet Estimate Adequate (Adequate); Poikilocytosis 2+; Schistocytes 1+; Target Cells 2+
[2024-05-05] MEDS: IRON SUCROSE COMPLEX 400 MG in SODIUM CHLORIDE 0.9% IV 250 ML 108 MG IVPB (17:44)
[2024-05-05] MEDS: KCL 40 MEQ/0.45% NS 1,000 ML 100 ML IV CONT (17:45)
[2024-05-05] MEDS: FAMOTIDINE 20 MG/2 ML VIAL IV PUSH (20:22)
[2024-05-05 20:41] VITALS: BP 107/58; PULSE 70; RESP 20; TEMP 37.2; O2SAT 97
[2024-05-06] VITALS (12 sets, daily range): BP systolic 101–126; BP diastolic 53–81; PULSE 74–93; RESP 16–20; TEMP 36.2–37.1; O2SAT 95–100
[2024-05-06] MEDS: POTASSIUM CHLORIDE 20 MEQ ER TABLET 40 MEQ PO (00:57)
[2024-05-06] MEDS: HYDROcodone/acetaminophen (*CRX) 5-325 MG TABLET 2 TAB PO ×5 (04:38→22:01)
[2024-05-06 06:11] LABS: Hematocrit 24.6 % (37.0-47.0); Hemoglobin 7.7 g/dL (12.0-15.0); Mean Corpuscular HGB Conc 31.3 g/dl (32-36); Mean Corpuscular Hemoglobin 22.1 pg (26-34); Mean Corpuscular Volume 70.7 fl (80-100); Mean Platelet Volume 9.4 fl (7.4-10.4); Platelet Count Result 369 k/mm3 (150-375); Red Blood Count 3.48 M/mm3 (4.2-5.4); Red Cell Distribution Width 18.9 % (11.5-14.5); White Blood Count 11.2 K/mm3 (4.5-10.0)
[2024-05-06 06:28] LABS: Alanine Aminotransferase 23 U/L (6-35); Albumin Level 3.2 g/dL (3.5-5.1); Alkaline Phosphatase 78 U/L (38-126); Anion Gap 7 mmol/L (4-12); Aspartate Amino Transferase 36 U/L (14-36); Bilirubin,Total 0.6 mg/dL (0.2-1.3); Blood Urea Nitrogen 6 mg/dL (7-17); Calcium 9.5 mg/dL (8.4-10.2); Carbon Dioxide 27 mmol/L (22-30); Chloride 100 mmol/L (98-107); Estimated CRCL calculation 135 ml/min; Estimated Glomerular Filt Rate > 60; Glucose 84 mg/dL (65-110); Potassium 3.4 mmol/L (3.4-5.0); Sodium 134 mmol/L (137-145)
[2024-05-06] MEDS: PIPERACILLN/TAZ 3.375GM/NS50ML 3.375 GM/50 ML BAG IVPB ×3 (06:53→23:02)
[2024-05-06] MEDS: polyethylene glycoL 3350 17 GM POWD.PACK PO (08:44)
[2024-05-06] MEDS: FAMOTIDINE 20 MG/2 ML VIAL IV PUSH ×2 (08:44→20:34)
--- NOTE | 2024-05-06 11:40 | PM.PNGS ---
Progress Note: A&P Assessment and Plan (1) Pelvic abscess: Status: Acute Assessment and Plan: S/p perc drain x 2. Abdominal exam benign. Clinically improving. Cultures pending. Advanced to regular diet. Continue IV antibiotics. Plan I have discussed the patient's case and plan of care with Dr. Figueredo. Subjective Subjective Date/Time Seen: 05/06/24 11:40 Patient reports: no new complaints, tolerating a regular diet, flatus, no bowel movement and afebrile Interval history: patient feels like her abdominal pain has improved since drains were placed, different pain now just located at the perc drain sites. No bloating, nausea, or vomiting. Exam Const: General: comfortable and no acute distress GI: Inspection: other (less distended) GI Palp: Yes Soft to palpation, Yes Tenderness to palpation present (GI) (RLQ near perc drains), No Guarding due to palpation present (GI) and No Rebound tenderness present Auscultation: normal bowel sounds Other: Perc drain x 2 in RLQ with scant serosanguineous drainage Objective Data Vital Signs Vital Signs: Vital Signs - 24 hr 05/05/24 14:00 05/05/24 20:41 05/05/24 20:00 Temperature 98.5 F 98.9 F Pulse Rate 95 70 Respiratory Rate 16 20 Blood Pressure 106/53 L 107/58 L Pulse Oximetry 94 97 Oxygen Delivery Room Air 05/06/24 05:51 05/06/24 08:00 Temperature 97.9 F Pulse Rate 81 Respiratory Rate 20 Blood Pressure 119/71 Pulse Oximetry 100 Oxygen Delivery Room Air Intake/Output Intake/Output: Intake & Output 05/03/24 05/04/24 05/05/24 05/06/24 23:59 23:59 23:59 23:59 Intake Total 1200 530 Output Total 300 710 Balance 900 -180 Meds/Results Medications: Active Medications Generic Name Dose Route Start Last Admin Trade Name Freq PRN Reason Stop Dose Admin Hydrocodone Bitart/Acetaminophen 1 tab 05/04/24 21:32 Hydrocodone/Acetaminophen (*Crx) 5-325 Mg Tablet PO Q4H PRN Pain Rated 1-3 Hydrocodone Bitart/Acetaminophen 2 tab 05/04/24 21:32 05/06/24 08:44 Hydrocodone/Acetaminophen (*Crx) 5-325 Mg Tablet PO 2 tab Q4H PRN Administration Pain Rated 4-6 Bisacodyl 10 mg 05/06/24 11:39 Bisacodyl 10 Mg Suppository RECTAL 05/06/24 11:40 ONCE ONE Famotidine 20 mg 05/05/24 21:00 05/06/24 08:44 Famotidine 20 Mg/2 Ml Vial IV PUSH 20 mg Q12HR CHERRI Administration Hydromorphone HCl 0.5 mg 05/04/24 19:05 05/04/24 20:23 Hydromorphone Hcl Inj (*Crx) 1 Mg/Ml Syr IV PUSH 0.5 mg Q4H PRN Administration Pain Rated 7-10 Piperacillin/Tazobactam/Dextrose 3.375 gm in 50 mls @ 100 mls/hr 05/05/24 01:00 05/06/24 06:53 Zosyn 3.375 Gm/Ns 50 Ml IVPB 100 mls/hr Q6HR CHERRI Administration Ondansetron HCl 4 mg 05/04/24 19:05 Ondansetron Inj 4 Mg/2 Ml Vial IV PUSH Q4H PRN Nausea Perflutren Lipid Microsphere 0 ml 05/05/24 10:38 Perflutren Lipid Microspheres 1.5 Ml Vial Diluted To 10 Ml Total Volume IV PUSH 05/08/24 10:38 ONCE PRN adequate visualization Protocol Polyethylene Glycol 17 gm 05/06/24 09:00 05/06/24 08:44 Polyethylene Glycol 3350 17 Gm Powd.Pack PO 17 gm QAM CHERRI Administration Radiology Results: ITS Impressions Abdomen/Pelvis CT 05/04/24 18:35 IMPRESSION: 11.8 cm fluid and gas collection with rim enhancement in the pelvis concerning for abscess. Sigmoid perforation with subsequent bile leak should be considered in the differential given the close association of the collection with the traversing sigmoid colon. Hyperdense material in the pelvic collection may represent proteinaceous debris, blood, or bowel content. No large volume active extravasation detected. 5.0 cm rim enhancing fluid collection in the distal right paracolic gutter concerning for abscess which may or may not be in communication with the pelvic collection. Inferior mesenteric, pelvic, and bilateral inguinal lymphadenopathy. Cystitis, po
[2024-05-06] MEDS: BISACODYL 10 MG SUPPOSITORY RECTAL (12:48)
--- NOTE | 2024-05-06 13:49 | PM.GYNPNOP ---
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 Drain draining serosanguinous fluid. She is symptomaticly improving. Cultures pending. Blood cultures no growth. (2) Chest pain: Code(s): R07.9 - Chest pain, unspecified Status: Acute Assessment and Plan: Resolved (3) Anemia: Code(s): D64.9 - Anemia, unspecified Status: Acute Assessment and Plan: Iron transfusion yesterday. Hgb 7.4. Will start blood transfusion. (4) Vulvar lesion: Code(s): N90.89 - Other specified noninflammatory disorders of vulva and perineum Status: Acute Assessment and Plan: She was informed the lesion look live HSV. Will start Valtrex and topical acyclovir. Viral swab done today. (5) Hypokalemia: Code(s): E87.6 - Hypokalemia Status: Acute Assessment and Plan: Replacing with oral potassium. Time Spent With Patient Time: Total time spent is greater than 50% in coordination of care (as documented) at patient's floor/unit and/or counseling patient: Time with patient: 15 - 25 minutes HOLLOW TILE PARTITION ERECTOR- PN:Subj Post-Op Subjective Date/time seen: 05/06/24 13:49 Interval history: She states pain better, she had recent bowel movement, tolerating regular diet, pain decreased mostly 4-5 constant on right lower side. She states the vaginal drainage stopped. She has ambulated to restroom. Denies leg pain or SOB or CP. She c/o feeling a stinging at vaginal area. Denies h/o HSV. Exam Const: General: no acute distress Resp: Effort & Inspection: normal respiratory effort GI: Other: no distention, tenderness right lower and mid to palpation, no rebound : Other: several clusters blister lesions on lower right inner labia minora Extrem: General: normal to inspection and no calf tenderness HOLLOW TILE PARTITION ERECTOR - PN: Obj Data Vital Signs Vital Signs: Vital Signs - 24 hr 05/05/24 14:00 05/05/24 20:41 05/05/24 20:00 Temperature 98.5 F 98.9 F Pulse Rate 95 70 Respiratory Rate 16 20 Blood Pressure 106/53 L 107/58 L Pulse Oximetry 94 97 Oxygen Delivery Room Air 05/06/24 05:51 05/06/24 08:00 Temperature 97.9 F Pulse Rate 81 Respiratory Rate 20 Blood Pressure 119/71 Pulse Oximetry 100 Oxygen Delivery Room Air Intake/Output Intake/Output: Intake & Output 05/03/24 05/04/24 05/05/24 05/06/24 23:59 23:59 23:59 23:59 Intake Total 1200 1060 Output Total 300 710 Balance 900 350 Meds/Results Medications: Active Medications Generic Name Dose Route Start Last Admin Trade Name Freq PRN Reason Stop Dose Admin Hydrocodone Bitart/Acetaminophen 1 tab 05/04/24 21:32 Hydrocodone/Acetaminophen (*Crx) 5-325 Mg Tablet PO Q4H PRN Pain Rated 1-3 Hydrocodone Bitart/Acetaminophen 2 tab 05/04/24 21:32 05/06/24 12:47 Hydrocodone/Acetaminophen (*Crx) 5-325 Mg Tablet PO 2 tab Q4H PRN Administration Pain Rated 4-6 Acyclovir 1 applic 05/06/24 15:00 Acyclovir 5% Ointment 15 Gm Tube TOPICAL 5 TIMES DAILY CHERRI Famotidine 20 mg 05/05/24 21:00 05/06/24 08:44 Famotidine 20 Mg/2 Ml Vial IV PUSH 20 mg Q12HR CHERRI Administration Hydromorphone HCl 0.5 mg 05/04/24 19:05 05/04/24 20:23 Hydromorphone Hcl Inj (*Crx) 1 Mg/Ml Syr IV PUSH 0.5 mg Q4H PRN Administration Pain Rated 7-10 Piperacillin/Tazobactam/Dextrose 3.375 gm in 50 mls @ 100 mls/hr 05/05/24 01:00 05/06/24 12:47 Zosyn 3.375 Gm/Ns 50 Ml IVPB 100 mls/hr Q6HR CHERRI Administration Sodium Chloride 250 mls @ 30 mls/hr 05/06/24 13:43 Normal Saline Iv IV CONT 05/06/24 22:02 .Q8H20M STA Ondansetron HCl 4 mg 05/04/24 19:05 Ondansetron Inj 4 Mg/2 Ml Vial IV PUSH Q4H PRN Nausea Perflutren Lipid Microsphere 0 ml 05/05/24 10:38 Perflutren Lipid Microspheres 1.5 Ml Vial Diluted To 10 Ml Total Volume IV PUSH 05/08/24 10:38 ONCE PRN adequ
[2024-05-06] MEDS: valACYclovir HCL 500 MG TABLET 1000 MG PO ×2 (14:04→22:01)
[2024-05-06] MEDS: SODIUM CHLORIDE 0.9% IV 250 ML 30 ML IV CONT (17:20)
[2024-05-06] MEDS: POTASSIUM CHLORIDE 20 MEQ PACKET (FOR LIQUID) 40 MEQ PO (17:22)
[2024-05-06] MEDS: ACYCLOVIR 5% OINTMENT 15 GM TUBE 1 APPLIC TOPICAL ×2 (17:22→20:34)
[2024-05-07] MEDS: HYDROcodone/acetaminophen (*CRX) 5-325 MG TABLET 2 TAB PO ×5 (02:33→19:58)
[2024-05-07] MEDS: PIPERACILLN/TAZ 3.375GM/NS50ML 3.375 GM/50 ML BAG IVPB ×2 (05:22→12:45)
[2024-05-07 06:00] VITALS: BP 109/78; PULSE 74; RESP 18; TEMP 36.9; O2SAT 98
[2024-05-07] MEDS: POTASSIUM CHLORIDE 20 MEQ PACKET (FOR LIQUID) 40 MEQ PO (09:57)
[2024-05-07] MEDS: valACYclovir HCL 500 MG TABLET 1000 MG PO ×2 (09:57→19:56)
[2024-05-07] MEDS: polyethylene glycoL 3350 17 GM POWD.PACK PO (09:57)
[2024-05-07] MEDS: FAMOTIDINE 20 MG/2 ML VIAL IV PUSH ×2 (09:57→19:57)
[2024-05-07] MEDS: ACYCLOVIR 5% OINTMENT 15 GM TUBE 1 APPLIC TOPICAL ×5 (09:58→19:59)
[2024-05-07 12:10] LABS: Hematocrit 31.6 % (37.0-47.0); Hemoglobin 10.1 g/dL (12.0-15.0); Mean Corpuscular Hemoglobin 23.4 pg (26-34); Mean Corpuscular Volume 73.1 fl (80-100); Mean Platelet Volume 9.6 fl (7.4-10.4); Platelet Count Result 417 k/mm3 (150-375); Red Blood Count 4.32 M/mm3 (4.2-5.4); Red Cell Distribution Width 20.1 % (11.5-14.5)
[2024-05-07 12:23] LABS: Alanine Aminotransferase 20 U/L (6-35); Albumin Level 3.2 g/dL (3.5-5.1); Alkaline Phosphatase 80 U/L (38-126); Anion Gap 7 mmol/L (4-12); Aspartate Amino Transferase 29 U/L (14-36); Bilirubin,Total 0.5 mg/dL (0.2-1.3); Blood Urea Nitrogen 5 mg/dL (7-17); Calcium 9.9 mg/dL (8.4-10.2); Carbon Dioxide 26 mmol/L (22-30); Chloride 102 mmol/L (98-107); Estimated CRCL calculation 135 ml/min; Estimated Glomerular Filt Rate > 60; Glucose 109 mg/dL (65-110); Potassium 3.3 mmol/L (3.4-5.0); Sodium 135 mmol/L (137-145)
--- NOTE | 2024-05-07 12:36 | PC.NURSE ---
Addendum entered by Yeny Doss RN 05/07/24 15:22: notified Original Note: Pt told staff that she dumped out her last potassium that was given to her. Pt aware that her potassium has been low and that she needs to take it.
[2024-05-07 14:00] VITALS: BP 129/78; PULSE 67; RESP 16; TEMP 36.3; O2SAT 99
--- NOTE | 2024-05-07 14:16 | PM.PNGS ---
Progress Note: A&P Assessment and Plan (1) Pelvic abscess: Status: Acute Assessment and Plan: doing well, cont drain and abx, ? repeat CT prior to drain removal, encourage OOB Subjective Subjective Date/Time Seen: 05/07/24 14:16 Interval history: feels pretty good, some incisional soreness at drain sites Review of Systems Review of Systems: All systems reviewed & are unremarkable except as noted in HPI and below Exam Const: General: cooperative, comfortable and no acute distress Resp: Auscultation: clear to auscultation bilaterally Cardio: Rate: regular rate Rhythm: regular rhythm GI: Inspection: normal to inspection and non-distended GI Palp: Yes abdominal tenderness, Yes Soft to palpation, Yes Tenderness to palpation present (GI), No Guarding due to palpation present (GI) and No Rigid due to palpation Other: PJ c mod s/s drainage Objective Data Vital Signs Vital Signs: Vital Signs - 24 hr 05/06/24 17:20 05/06/24 17:35 05/06/24 18:35 Temperature 37.0 C 36.6 C 36.7 C Pulse Rate 84 74 81 Respiratory Rate 16 18 16 Blood Pressure 110/53 L 124/81 111/66 Pulse Oximetry 100 100 95 Oxygen Delivery 05/06/24 19:35 05/06/24 20:31 05/06/24 20:40 Temperature 37.0 C 37.0 C 36.3 C L Pulse Rate 80 80 93 Respiratory Rate 20 20 20 Blood Pressure 115/74 115/74 117/79 Pulse Oximetry 96 96 97 Oxygen Delivery 05/06/24 20:40 05/06/24 20:00 05/06/24 20:39 Temperature 36.3 C L 37.0 C Pulse Rate 93 80 Respiratory Rate 20 20 Blood Pressure 117/79 115/74 Pulse Oximetry 97 96 Oxygen Delivery Room Air 05/06/24 20:56 05/06/24 21:56 05/06/24 22:56 Temperature 36.2 C L 36.2 C L 37.1 C Pulse Rate 88 80 75 Respiratory Rate 20 20 20 Blood Pressure 118/77 113/71 126/75 Pulse Oximetry 98 97 99 Oxygen Delivery 05/07/24 06:00 05/07/24 08:00 05/07/24 14:00 Temperature 36.9 C 36.3 C L Pulse Rate 74 67 Respiratory Rate 18 16 Blood Pressure 109/78 129/78 Pulse Oximetry 98 99 Oxygen Delivery Room Air Intake/Output Intake/Output: Intake & Output 05/04/24 05/05/24 05/06/24 05/07/24 23:59 23:59 23:59 23:59 Intake Total 1200 2650 410 Output Total 300 960 80 Balance 900 1690 330 Meds/Results Medications: Active Medications Generic Name Dose Route Start Last Admin Trade Name Freq PRN Reason Stop Dose Admin Hydrocodone Bitart/Acetaminophen 1 tab 05/04/24 21:32 Hydrocodone/Acetaminophen (*Crx) 5-325 Mg Tablet PO Q4H PRN Pain Rated 1-3 Hydrocodone Bitart/Acetaminophen 2 tab 05/04/24 21:32 05/07/24 10:25 Hydrocodone/Acetaminophen (*Crx) 5-325 Mg Tablet PO 2 tab Q4H PRN Administration Pain Rated 4-6 Acyclovir 1 applic 05/06/24 15:00 05/07/24 12:45 Acyclovir 5% Ointment 15 Gm Tube TOPICAL 1 applic 5 TIMES DAILY CHERRI Administration Famotidine 20 mg 05/05/24 21:00 05/07/24 09:57 Famotidine 20 Mg/2 Ml Vial IV PUSH 20 mg Q12HR CHERRI Administration Hydromorphone HCl 0.5 mg 05/04/24 19:05 05/04/24 20:23 Hydromorphone Hcl Inj (*Crx) 1 Mg/Ml Syr IV PUSH 0.5 mg Q4H PRN Administration Pain Rated 7-10 Piperacillin/Tazobactam/Dextrose 3.375 gm in 50 mls @ 100 mls/hr 05/05/24 01:00 05/07/24 12:45 Zosyn 3.375 Gm/Ns 50 Ml IVPB 100 mls/hr Q6HR CHERRI Administration Ondansetron HCl 4 mg 05/04/24 19:05 Ondansetron Inj 4 Mg/2 Ml Vial IV PUSH Q4H PRN Nausea Perflutren Lipid Microsphere 0 ml 05/05/24 10:38 Perflutren Lipid Microspheres 1.5 Ml Vial Diluted To 10 Ml Total Volume IV PUSH 05/08/24 10:38 ONCE PRN adequate visualization Protocol Polyethylene Glycol 17 gm 05/06/24 09:00 05/07/24 09:57 Polyethylene Glycol 3350 17 Gm Powd.Pack PO 17 gm QAM CHERRI Administration Potassium Chloride 40 meq 05/06/24 17:00 05/07/24 09:57 Potassium Chloride 20 Meq Packet (For Liquid) PO 40 meq BID CHERRI Administration Valacyclovir HCl 1,000 mg 05/06/24 13:50
[2024-05-07] MEDS: AMOXICILLIN/CLAVULANATE K 875-125 MG TAB 1 TABLET PO (18:07)
[2024-05-07] MEDS: POTASSIUM CHLORIDE 20 MEQ ER TABLET 40 MEQ PO (18:08)
[2024-05-07] MEDS: DOXYCYCLINE HYCLATE 100 MG TABLET PO (19:57)
[2024-05-07 21:30] VITALS: BP 113/79; PULSE 74; RESP 20; TEMP 36.6; O2SAT 100
[2024-05-08] MEDS: HYDROcodone/acetaminophen (*CRX) 5-325 MG TABLET 2 TAB PO ×2 (00:07→05:38)
[2024-05-08 06:00] VITALS: BP 132/86; PULSE 74; RESP 20; TEMP 36.8; O2SAT 98
[2024-05-08 08:20] LABS: Hematocrit 29.9 % (37.0-47.0); Hemoglobin 9.5 g/dL (12.0-15.0); Mean Corpuscular HGB Conc 31.8 g/dl (32-36); Mean Corpuscular Hemoglobin 23.1 pg (26-34); Mean Corpuscular Volume 72.6 fl (80-100); Mean Platelet Volume 9.7 fl (7.4-10.4); Platelet Count Result 461 k/mm3 (150-375); Red Blood Count 4.12 M/mm3 (4.2-5.4); Red Cell Distribution Width 20.6 % (11.5-14.5); White Blood Count 8.5 K/mm3 (4.5-10.0)
--- NOTE | 2024-05-08 09:25 | PM.PNGS ---
Progress Note: A&P Assessment and Plan (1) Pelvic abscess: Status: Acute Assessment and Plan: exam largely benign, will repeat CT today to assess abscess x 2 s/p drainage, cont abx Subjective Subjective Date/Time Seen: 05/08/24 09:25 Interval history: feels pretty good, still c/o pain around drain sites amol c movt, abdiel diet Review of Systems Review of Systems: All systems reviewed & are unremarkable except as noted in HPI and below Exam Const: General: cooperative, comfortable and no acute distress Resp: Auscultation: clear to auscultation bilaterally Cardio: Rate: regular rate Rhythm: regular rhythm GI: Inspection: normal to inspection, non-distended and incision GI Palp: Yes abdominal tenderness, Yes Soft to palpation, Yes Tenderness to palpation present (GI), No Guarding due to palpation present (GI) and No Rigid due to palpation Other: drains mod s/s drainage Objective Data Vital Signs Vital Signs: Vital Signs - 24 hr 05/07/24 14:00 05/07/24 20:00 05/07/24 21:30 Temperature 36.3 C L 36.6 C Pulse Rate 67 74 Respiratory Rate 16 20 Blood Pressure 129/78 113/79 Pulse Oximetry 99 100 Oxygen Delivery Room Air 05/08/24 06:00 Temperature 36.8 C Pulse Rate 74 Respiratory Rate 20 Blood Pressure 132/86 Pulse Oximetry 98 Oxygen Delivery Intake/Output Intake/Output: Intake & Output 05/05/24 05/06/24 05/07/24 05/08/24 23:59 23:59 23:59 23:59 Intake Total 1200 2650 1200 480 Output Total 300 960 80 Balance 900 1690 1120 480 Meds/Results Medications: Active Medications Generic Name Dose Route Start Last Admin Trade Name Freq PRN Reason Stop Dose Admin Hydrocodone Bitart/Acetaminophen 1 tab 05/04/24 21:32 Hydrocodone/Acetaminophen (*Crx) 5-325 Mg Tablet PO Q4H PRN Pain Rated 1-3 Hydrocodone Bitart/Acetaminophen 2 tab 05/04/24 21:32 05/08/24 05:38 Hydrocodone/Acetaminophen (*Crx) 5-325 Mg Tablet PO 2 tab Q4H PRN Administration Pain Rated 4-6 Acyclovir 1 applic 05/06/24 15:00 05/07/24 19:59 Acyclovir 5% Ointment 15 Gm Tube TOPICAL 1 applic 5 TIMES DAILY CHERRI Administration Amoxicillin/Clavulanate Potassium 1 tablet 05/07/24 18:00 05/07/24 18:07 Amoxicillin/Clavulanate K 875-125 Mg Tab PO 1 tablet Q12HR CHERRI Administration Doxycycline Hyclate 100 mg 05/07/24 21:00 05/07/24 19:57 Doxycycline Hyclate 100 Mg Tablet PO 100 mg Q12HR CHERRI Administration Famotidine 20 mg 05/05/24 21:00 05/07/24 19:57 Famotidine 20 Mg/2 Ml Vial IV PUSH 20 mg Q12HR CHERRI Administration Hydromorphone HCl 0.5 mg 05/04/24 19:05 05/04/24 20:23 Hydromorphone Hcl Inj (*Crx) 1 Mg/Ml Syr IV PUSH 0.5 mg Q4H PRN Administration Pain Rated 7-10 Ondansetron HCl 4 mg 05/04/24 19:05 Ondansetron Inj 4 Mg/2 Ml Vial IV PUSH Q4H PRN Nausea Perflutren Lipid Microsphere 0 ml 05/05/24 10:38 Perflutren Lipid Microspheres 1.5 Ml Vial Diluted To 10 Ml Total Volume IV PUSH 05/08/24 10:38 ONCE PRN adequate visualization Protocol Polyethylene Glycol 17 gm 05/06/24 09:00 05/07/24 09:57 Polyethylene Glycol 3350 17 Gm Powd.Pack PO 17 gm QAM CHERRI Administration Potassium Chloride 40 meq 05/07/24 17:00 05/07/24 18:08 Potassium Chloride 20 Meq Er Tablet PO 40 meq BID CHERRI Administration Valacyclovir HCl 1,000 mg 05/06/24 13:50 05/07/24 19:56 Valacyclovir Hcl 500 Mg Tablet PO 1,000 mg Q12HR CHERRI Administration Radiology Results: ITS Impressions Abdomen/Pelvis CT 05/04/24 18:35 IMPRESSION: 11.8 cm fluid and gas collection with rim enhancement in the pelvis concerning for abscess. Sigmoid perforation with subsequent bile leak should be considered in the differential given the close association of the collection with the traversing sigmoid colon. Hyperdense material in the pelvic collection may represent proteinaceous debris, blood, or bowel content. No
[2024-05-08] MEDS: valACYclovir HCL 500 MG TABLET 1000 MG PO (09:33)
[2024-05-08] MEDS: DOXYCYCLINE HYCLATE 100 MG TABLET PO (09:34)
[2024-05-08] MEDS: AMOXICILLIN/CLAVULANATE K 875-125 MG TAB 1 TABLET PO (09:34)
[2024-05-08] MEDS: POTASSIUM CHLORIDE 20 MEQ ER TABLET 40 MEQ PO (09:34)
[2024-05-08] MEDS: FAMOTIDINE 20 MG/2 ML VIAL IV PUSH (09:35)
--- NOTE | 2024-05-08 09:35 | PM.GYNPNOP ---
PROP ATTENDANT - A/P Assessment and plan (1) Pelvic abscess: Status: Acute Assessment and Plan: Moderate draining. She is clinically improving. WBC normal. Afebrile. Blood culture neg. Wound culture B. fragilis. Will start oral antibiotics. (2) Anemia: Code(s): D64.9 - Anemia, unspecified Status: Acute Assessment and Plan: s/p blood transfusion. No signs of hypovolemia. H/H increased more than expected. (3) Vulvar lesion: Code(s): N90.89 - Other specified noninflammatory disorders of vulva and perineum Status: Acute Assessment and Plan: Improving. Viral cultures pending. Continue antiviral. (4) Hypokalemia: Code(s): E87.6 - Hypokalemia Status: Acute Assessment and Plan: Will switch to another oral form. Time Spent With Patient Time: Total time spent is greater than 50% in coordination of care (as documented) at patient's floor/unit and/or counseling patient: Time with patient: less than 15 minutes PROP ATTENDANT- PN:Subj Post-Op Subjective Date/time seen: 05/07/24 1200 Interval history: States pain is better than admission. The irritation at vaginal area improved. She did not the potassium. She has ambulated without problems. Continues to have flatus. Had BM yesterday. Exam Const: General: cooperative and no acute distress Resp: Effort & Inspection: normal respiratory effort GI: Inspection: normal to inspection, non-distended and incision GI Palp: Yes abdominal tenderness, Yes Soft to palpation, Yes Tenderness to palpation present (GI), No Guarding due to palpation present (GI) and No Rigid due to palpation Other: drains mod s/s drainage PROP ATTENDANT - PN: Obj Data Vital Signs Vital Signs: Vital Signs - 24 hr 05/07/24 14:00 05/07/24 20:00 05/07/24 21:30 Temperature 97.4 F L 97.9 F Pulse Rate 67 74 Respiratory Rate 16 20 Blood Pressure 129/78 113/79 Pulse Oximetry 99 100 Oxygen Delivery Room Air 05/08/24 06:00 Temperature 98.2 F Pulse Rate 74 Respiratory Rate 20 Blood Pressure 132/86 Pulse Oximetry 98 Oxygen Delivery Intake/Output Intake/Output: Intake & Output 05/05/24 05/06/24 05/07/24 05/08/24 23:59 23:59 23:59 23:59 Intake Total 1200 2650 1200 480 Output Total 300 960 80 Balance 900 1690 1120 480 Meds/Results Medications: Active Medications Generic Name Dose Route Start Last Admin Trade Name Freq PRN Reason Stop Dose Admin Hydrocodone Bitart/Acetaminophen 1 tab 05/04/24 21:32 Hydrocodone/Acetaminophen (*Crx) 5-325 Mg Tablet PO Q4H PRN Pain Rated 1-3 Hydrocodone Bitart/Acetaminophen 2 tab 05/04/24 21:32 05/08/24 05:38 Hydrocodone/Acetaminophen (*Crx) 5-325 Mg Tablet PO 2 tab Q4H PRN Administration Pain Rated 4-6 Acyclovir 1 applic 05/06/24 15:00 05/07/24 19:59 Acyclovir 5% Ointment 15 Gm Tube TOPICAL 1 applic 5 TIMES DAILY CHERRI Administration Amoxicillin/Clavulanate Potassium 1 tablet 05/07/24 18:00 05/08/24 09:34 Amoxicillin/Clavulanate K 875-125 Mg Tab PO 1 tablet Q12HR CHERRI Administration Doxycycline Hyclate 100 mg 05/07/24 21:00 05/08/24 09:34 Doxycycline Hyclate 100 Mg Tablet PO 100 mg Q12HR CHERRI Administration Famotidine 20 mg 05/05/24 21:00 05/07/24 19:57 Famotidine 20 Mg/2 Ml Vial IV PUSH 20 mg Q12HR CHERRI Administration Hydromorphone HCl 0.5 mg 05/04/24 19:05 05/04/24 20:23 Hydromorphone Hcl Inj (*Crx) 1 Mg/Ml Syr IV PUSH 0.5 mg Q4H PRN Administration Pain Rated 7-10 Ondansetron HCl 4 mg 05/04/24 19:05 Ondansetron Inj 4 Mg/2 Ml Vial IV PUSH Q4H PRN Nausea Perflutren Lipid Microsphere 0 ml 05/05/24 10:38 Perflutren Lipid Microspheres 1.5 Ml Vial Diluted To 10 Ml Total Volume IV PUSH 05/08/24 10:38 ONCE PRN adequate visualization Protocol Polyethylene Glycol 17 gm 05/06/24 09:00 05/08/24 09:35 Polyethylene Glycol 3350 17 Gm Powd.Pack PO Not Given QAM [facility]
[2024-05-08 09:44] LABS: Anion Gap 9 mmol/L (4-12); Blood Urea Nitrogen 4 mg/dL (7-17); Calcium 9.9 mg/dL (8.4-10.2); Carbon Dioxide 22 mmol/L (22-30); Chloride 105 mmol/L (98-107); Estimated CRCL calculation 135 ml/min; Estimated Glomerular Filt Rate > 60; Glucose 85 mg/dL (65-110); Potassium 3.8 mmol/L (3.4-5.0); Sodium 136 mmol/L (137-145)
[2024-05-08] MEDS: ONDANSETRON HCL ODT 4 MG TABLET PO (12:37)
--- NOTE | 2024-05-08 13:14 | PM.DS ---
DS: Admitting Diagnosis Discharge Date 05/08/2024. Admitting Diagnosis Pelvic abscess DS: Discharge Diagnosis Discharge Diagnosis (1) Pelvic abscess: Status: Acute (2) Anemia: Code(s): D64.9 - Anemia, unspecified Status: Acute (3) Hypokalemia: Code(s): E87.6 - Hypokalemia Status: Acute DS: Summary Hospital Course Reason for hospitalization: She was admitted from the ED after presenting with complaints of fever and vaginal discharge. Hospital Course: She was admitted from the ED after presenting with complaints of fever and vaginal discharge. CT findings showed 2 fluid collections. She was started on IV antibiotics and she had CT guided placement of drains in both collections. She has blood and urine culture and culture of abscess fluid. The culture from the abscess did show bacteroides. She She had General Surgery consultation to rule out bowel perforation. General surgery not concerned with bowel perforation and agreed with plan for drain placement. She had subsequent CT which showed reduction of fluid pockets. She was switched to oral antibiotics, Augmentin, after CT showed reduction of pockets and she was afebrile. During the hospital stay she did complain of external vaginal irritation. She was informed it could be nonspecific irritation or lesions consistent with HSV. HSV cultures obtained of lesion and she was started on Valtrex. The final result was the test was not performed. Her lesions did improve She did receive 2 units of PRBC due to anemia. Pre transfusion Hemoglobin was 7.7 and 10.1 post discharge. She was started on iron therapy. Prior to discharge she had adequate pain control, was ambulating well. She did receive potassium supplementation due to hypokalemia. She was afebrile for greater than 48 hours prior to discharge. She was sent home with Augmentin and Flagyl and instructed to return the following week to remove the paracolic gutter drain. Status at Discharge Functional status at discharge: independent ambulation Time Spent with Patient Time attestation: Total time spent providing and/or coordinating discharge services: Exam Const: General: cooperative and no acute distress Resp: Effort & Inspection: normal respiratory effort GI: Inspection: normal to inspection, non-distended and incision GI Palp: Yes abdominal tenderness, Yes Soft to palpation, Yes Tenderness to palpation present (GI) (improving), No Guarding due to palpation present (GI) and No Rigid due to palpation Other: drains small amount in paracolic, decreasing amount in central drain Skin: General skin exam: normal color Neuro: General: oriented to person, oriented to place and oriented to time Extrem: General: normal to inspection and no calf tenderness Psych: Appearance: grossly normal DS: Data Data Completed and Pending Completed studies during hospitalization: Abd/Pelvic CT x 2 [address] guided drain placement Labs on day of discharge: Labs from last 24 hours 05/08/24 07:42 WBC 8.5 RBC 4.12 L Hgb 9.5 L Hct 29.9 L MCV 72.6 L MCH 23.1 L MCHC 31.8 L RDW 20.6 H Plt Count 461 H MPV 9.7 Sodium 136 L Potassium 3.8 Chloride 105 Carbon Dioxide 22 Anion Gap 9 BUN 4 L Creatinine 0.60 L Estim Creat Clear Calc 135 Estimated GFR > 60 Glucose 85 Calcium 9.9 Preliminary micro results at discharge 05/05/24 14:04 Anaerobic Culture - Preliminary Abscess Bacteroides fragilis group 05/04/24 19:55 Blood Culture - Preliminary Blood 05/04/24 19:25 Blood Culture - Preliminary Blood Discharge Plan Discharge Attending physician on discharge: Louis Tineo Consulting providers: Miroslava Figueredo; Jada Wiseman; Ildefonso Henderson V.; Eitan Cardenas; Vero Beebe; Andrew Ayers; Bernadine Conte; Romeo Hernadez Discharging Clinician: Louis Tineo Anticipated Discharge Date/Time: 05/08/24 13:00 Patient Disposition: Home, Self-Care
== END 2024-05-08 15:30 | disposition home or self-care (01) | DRG 862 ==
LOC: ANHED 19:10 → ANH3MED 19:40
PROVIDERS: Obstetrics & Gynecology; Physician Assistant; Admitting Provider Obstetrics & Gynecology; Emergency Provider Physician Assistant; PCP Family Medicine; Visit Provider Obstetrics & Gynecology
DX: T81.43XA Infection following a procedure, organ and space surgical site, initial encounter (principal); K65.1 Peritoneal abscess; N73.0 Acute parametritis and pelvic cellulitis; R07.9 Chest pain, unspecified; D64.9 Anemia, unspecified; E87.6 Hypokalemia; N90.89 Other specified noninflammatory disorders of vulva and perineum; Z90.710 Acquired absence of both cervix and uterus
CPT/HCPCS: 36415; 36430; 74176; 74177; 75989; 80048; 80053; 81001; 83605; 84484; 85025; 85027; 85610; 85730; 86850; 86900; 86901; 86923; 87040; 87070; 87075; 87076; 87086; 87088; 87205; 87252; 93005; 93306; 96361; 96375; 99285; A9270; C1729; C1769; G0378; J1170; J1756; J2270; J2405; J2543; J7030; J7050; J7120; P9016; Q9967